=== PATIENT | female | born 1950 | race Caucasian/White ===

== ENCOUNTER 2021-02-28 12:51 | Emergency (ER) | payer MEDICARE, OTHER, SELFPAY ==
[2021-02-28 13:04] VITALS: BP 179/80; PULSE 81; RESP 14; TEMP 37.4; O2SAT 100; BMI 22.1
[2021-02-28 14:28] VITALS: BP 165/70; PULSE 91; TEMP 36.7; O2SAT 99
--- NOTE | 2021-02-28 14:34 | DI.US.S_ITS ---
PROCEDURE: US PERIPH VENOUS UP EXTREM RT INDICATIONS: post iv pain TECHNIQUE: Real-time imaging, as well as color and pulse Doppler interrogation, was performed of the right upper extremity deep veins from the inferior neck to the antecubital fossa. COMPARISON: None. FINDINGS: The internal jugular vein, visualized portions of the subclavian vein, axillary, and brachial veins are free of intraluminal thrombus. Where physically possible, the veins are normally compressible. Color and pulse Doppler demonstrate normal intraluminal flow, with expected phasicity and pulsatility. Additional scanning of the cephalic and basilic veins of the superficial system demonstrate normal compressibility, without thrombus. There is a masslike structure in the antecubital fossa, demonstrating no vascularity. IMPRESSION: 1. No evidence for DVT in the right upper extremity. 2. A masslike, nonvascular structure in the antecubital fossa. The patient reports infiltration at the injection site for an MRI study. Although this could be related residual of injected intravenous contrast material, if clinical symptoms persist, CT or MRI is recommended for follow-up evaluation. Dictated by: Nabil Griffiths M.D. on 02/28/2021 at 15:11 Approved by: Nabil Griffiths M.D. on 02/28/2021 at 15:18
[2021-02-28 16:06] VITALS: BP 165/70; PULSE 85; RESP 18; O2SAT 100
--- NOTE | 2021-02-28 16:28 | ED_ITS ---
HPI - Skin/Abscess/Foreign Bdy General Chief complaint: Skin/Abscess/Foreign Body Stated complaint: Right elbow IV infiltration injury x1 week Time Seen by Provider: 02/28/21 16:16 Source: patient Mode of arrival: Ambulatory Limitations: no limitations History of Present Illness HPI narrative: Patient is a 71-year-old female with no past medical history presenting with right antecubital fossa toe pain and swelling. She said 2 weeks ago on February 13 she had it IV contrasted MRI for breast cancer screening. She states that the IV infiltrated, tech flushed it she did not think that the contrast the gone through yet. She had a extensive bruising and swelling of her entire right arm. No numbness or tingling. She has been taking ibuprofen 400 mg she has been heating and elevating it but pain continues. No redness pus or swelling. No fevers. However it continues to hurt Related Data Allergies Allergy/AdvReac Type Severity Reaction Status Date / Time thimerosal Allergy Verified 02/28/21 13:04 Review of Systems Review of Systems Narrative: GENERAL: Denies chills, fatigue, malaise, fever, sweats, travel HEENT: Denies sinus pain, ear pain, sore throat, difficulty swallowing, neck pain RESPIRATORY: Denies dyspnea, cough, wheezing, hemoptysis, sputum. CARDIOVASCULAR: Denies chest pain, palpitations, orthopnea, edema GASTROINTESTINAL: Denies nausea, vomiting, abdominal pain, diarrhea, constipation, melena. : Denies dysuria, frequency, incontinence, hematuria, urinary retention, flank pain. MUSCULOSKELETAL: See HPI SKIN: No rash, no erythema, no pruritus NEUROLOGIC: Denies weakness, dizziness, headache, numbness, change in speech, confusion PSYCHIATRIC: No concerning psychosocial issues. 12 point review of systems is negative except for those stated above and HPI Patient History Social History Smoking Status: Unknown if ever smoked Smoking Status: Unknown if ever smoked alcohol intake frequency: a few times a week Substance Use Type: does not use Exam Initial Vital Signs Initial Vital Signs: Vital Signs Temperature 99.4 F 02/28/21 13:04 Pulse Rate 81 02/28/21 13:04 Respiratory Rate 14 02/28/21 13:04 Blood Pressure 179/80 H 02/28/21 13:04 Pulse Oximetry 100 02/28/21 13:04 GENERAL: Well-appearing, well-nourished and in no acute distress. CARDIOVASCULAR: peripheral pulses in tact, cap refill <2 sec RESPIRATORY: No respiratory distress, speaks in full sentences without difficulty EXTREMITIES: Normal range of motion, no clubbing or edema. Neurovascularly intact. Right upper extremity swelling over the medial epicondyle no erythema tender to touch no bruising distal radial pulse intact NEUROLOGICAL: Cranial nerves II through XII grossly intact. Normal gait and speech. SKIN: Warm, dry, no petechiae, no rashes or lesions. Course Orders Ordered: ED Orders 02/28/21 14:34 US periph venous up extrem rt Stat Vital Signs Vital signs: Vital Signs - 8 hr 02/28/21 13:04 02/28/21 14:28 02/28/21 16:06 Temperature 99.4 F 98.1 F Pulse Rate 81 91 H 85 Respiratory Rate 14 18 Blood Pressure 179/80 H 165/70 H 165/70 H Pulse Oximetry 100 99 100 MDM - Skin/Abscess/Foreign Bdy Imaging Data US - DVT: Radiologist's Impression: PROCEDURE:? US PERIPH VENOUS UP EXTREM RT ? INDICATIONS:? post iv pain ? TECHNIQUE:? Real-time imaging, as well as color and pulse Doppler interrogation, was performed of the right upper extremity deep veins from the inferior neck to the antecubital fossa.? ? COMPARISON:? None. ? FINDINGS:? The internal jugular vein, visualized portions of the subclavian vein, axillary, and brachial veins are free of intraluminal thrombus.? Where physically possible, the veins are normally compressible.? Color and pulse Doppler demonstrate normal intraluminal flow, with expected phasicity and pulsatility.? Additional scanning of the cephalic and basilic veins of the superficial system demonstrate normal compressibility, without thrombus.? ? There is a masslike structure in the antecubital fossa, demonstrating no vascularity. ? IMPRESSION:? ? 1. No evidence for DVT in the right upper extremity. ? 2. A masslike, nonvascular structure in the antecubital fossa.? The patient repo rts infiltration at the injection site for an MRI study.? Although this could be related residual of injected intravenous contrast material, if clinical symptoms persist, CT or MRI is recommended for follow-up evaluation.? ? ? Dictated by: Nabil Griffiths M.D. on 02/28/2021 at 15:11 ? ? Approved by: Nabil Griffiths M.D. on 02/28/2021 at 15:1 MDM Narrative Medical decision making narrative: At this time she actually does have some mild swelling over the medial epicondyle area may be early beginning of abscess no masses appreciated actually think this is more like soft tissue swelling. She would need MRI or CT to confirm this I did discuss this finding with her. Recommend ice Motrin. She has the follow-up appointment with her primary care provider next week. At this time no other treatments. Discharge Plan Departure Patient Disposition: Home Clinical Impression: Phlebitis Instructions: Phlebitis/DVT (Alternative Therapy) Activity Restrictions/Additional Instructions: *You have been diagnosed with phlebitis *What to do: At this time recommend elevating ice please follow-up with PCP as scheduled *Continue to take medications as directed Motrin 600 mg every 6 hours if needed [id number] pain *Follow up with your primary care provider in 2-3 days or call [phone] *Return to ER if you should have redness pain swelling numbness tingling or any new, worsening or concerning symptoms
== END 2021-02-28 16:39 | disposition home or self-care (01) ==
PROVIDERS: Emergency Provider Emergency Medicine
DX: I80.8 Phlebitis and thrombophlebitis of other sites (principal)
CPT/HCPCS: 93971; 99281; 99284

== ENCOUNTER 2024-10-02 08:29 | Emergency (ER) | payer MEDICARE, OTHER, SELFPAY ==
[2024-10-02 08:42] VITALS: BP 115/64; PULSE 95; RESP 16; TEMP 37; O2SAT 99; BMI 22.1
--- NOTE | 2024-10-02 09:57 | ED.BACK ---
HPI - Back Pain/Injury General Chief Complaint: Back Pain/Injury Stated Complaint: Lower back pain 2 days Time Seen by Provider: 10/02/24 09:57 History of Present Illness HPI Narrative: 74 years old female came today complaining of right hip pain, right buttock pain, right low back pain since Saturday after she finished rolling the air mattress without any injury, numbness weakness on her legs, bowel or bladder incontinence or retention, saddle analgesia, abdominal pain, nausea vomiting, fever, chills, chest pain, shortness of breath. She not immunosuppressed hose and deny history of osteoporosis, diabetes, times plan, IV drug use. Related Data Previous Rx's ?Medication ?Instructions ?Recorded tizanidine 4 mg capsule (Zanaflex) 4 mg PO Q8H PRN muscle spasticity 10/02/24 #20 caps Allergies Allergy/AdvReac Type Severity Reaction Status Date / Time thimerosal Allergy Verified 02/28/21 13:04 Review of Systems Review of Systems Narrative: Positive for right low back pain, right groin pain. Negative for injury, numbness weakness on her legs, bowel or bladder incontinence or retention, saddle analgesia, abdominal pain, nausea vomiting, fever, chills, chest pain, shortness of breath. Patient History alcohol intake frequency: a few times a week Exam Narrative Exam Narrative: GENERAL: Cooperative. No acute distress. HEAD: Atraumatic. Normocephalic. NECK: Trachea midline. Non tender CARDIOVASCULAR: Regular rate and rhythm without murmurs, gallops, or rubs. RESPIRATORY: Clear to auscultation. Breath sounds equal bilaterally. No wheezes, rales, or rhonchi. GASTROINTESTINAL: Abdomen soft, non-tender, nondistended. No lump or hernia the groin. Musculoskeletal/EXTREMITIES: No edema or joint tenderness. No midline tenderness on palpation on lumbar spine, lower thoracic spine. Mild tenderness on palpation paraspinal muscle right lumbar region, right buttock. Tenderness on palpation of the proximal thigh muscle without mass or hernia. BACK: Nontender without deformity or crepitance. No flank tenderness. NEURO: AOx3. Negative straight leg raising test on both legs. Normal sensation and strength in both legs. Normal strength for knee extension, ankle flexion and extension on both legs. SKIN: No rash or erythema of visible areas Initial Vital Signs Initial Vital Signs: Vital Signs Temperature 98.6 F 10/02/24 08:42 Pulse Rate 95 H 10/02/24 08:42 Respiratory Rate 16 10/02/24 08:42 Blood Pressure 115/64 10/02/24 08:42 Pulse Oximetry 99 10/02/24 08:42 Oxygen Delivery Method Room Air 10/02/24 08:42 Course Orders Ordered: ED Orders 10/02/24 10:08 XR hip w pel RT 2V Stat Discontinued Medications Ketorolac Tromethamine (Ketorolac 30 Mg/Ml Vial) 30 mg IM NOW ONE Stop: 10/02/24 10:09 Last Admin: 10/02/24 10:27 Dose: 30 mg Documented By: ALEX Vital Signs Vital signs: Vital Signs - 8 hr 10/02/24 11:21 Pulse Rate 77 Respiratory Rate 16 Blood Pressure 172/88 H Pulse Oximetry 100 Oxygen Delivery Method Room Air MDM - Back Pain/Injury ECG Data Interpretation: PROCEDURE: XR HIP W PEL IF DONE RT 2V INDICATIONS: Right hip pain TECHNIQUE: AP pelvis with lateral view(s) of the right hip(s). COMPARISON: None. FINDINGS: Bones: No fractures or dislocations. Bilateral hip joint osteoarthritic changes are seen. No evidence of avascular necrosis of femoral heads. Pelvic ring appears intact. No suspicious bony lesions. Soft tissues: The visualized bowel gas pattern is normal. No suspicious soft tissue calcifications. IMPRESSION: No acute pelvic or hip fracture. Bilateral hip joint osteoarthritis. No evidence of avascular necrosis. Dictated by: Rajiv Stahl M.D. on 10/02/2024 at 10:38 Approved by: Rajiv Stahl M.D. on 10/02/2024 at 10:39 [facility] Narrative Medical decision making narrative: 74 years old female came today complaining of right groin pain, right buttock pain, right lower abdominal pain since Saturday after she rolled air mattress without any other injury, numbness weakness on her leg, bowel or bladder incontinence or retention, fever, chills, abdominal pain, mass at the groin or hernia, diarrhea, constipation, urine problem. Her CV exam, lung exam were normal. Abdominal exam was benign. No midline thoracolumbar spine tenderness on palpation. Tenderness on palpation paraspinal muscle right lumbar region, right gluteal muscle and the right proximal thigh muscle without hernia or femoral hernia or lymphadenopathy of the right groin. She was given Toradol IM and was feeling better. She declined pain medication. She said she to Zanaflex at home and was feeling better. She was sent home with Zanaflex and due to continued Tylenol alternating ibuprofen as needed. I asked her set up primary care doctor for follow up. Return to the ED precaution was given. X-ray of the pelvis and the right hip showed no acute finding. Discharge Plan Departure Patient Disposition: Home Clinical Impression: Low back strain, Acute pain of right hip Instructions: DI for Back Strain or Sprain Activity Restrictions/Additional Instructions: Please come back to the emergency room if any worsening symptoms including but not limited to fever, abdominal pain, nausea vomiting, numbness weakness on your leg, bowel or bladder incontinence or retention. Prescriptions: New tizanidine [Zanaflex] 4 mg capsule 4 mg PO Q8H PRN (Reason: muscle spasticity) Qty: 20 0RF Stand Alone Forms: Patient Portal/API
--- NOTE | 2024-10-02 10:08 | DI.RAD.S_ITS ---
PROCEDURE: XR HIP W PEL IF DONE RT 2V INDICATIONS: Right hip pain TECHNIQUE: AP pelvis with lateral view(s) of the right hip(s). COMPARISON: None. FINDINGS: Bones: No fractures or dislocations. Bilateral hip joint osteoarthritic changes are seen. No evidence of avascular necrosis of femoral heads. Pelvic ring appears intact. No suspicious bony lesions. Soft tissues: The visualized bowel gas pattern is normal. No suspicious soft tissue calcifications. IMPRESSION: No acute pelvic or hip fracture. Bilateral hip joint osteoarthritis. No evidence of avascular necrosis. Dictated by: Rajiv Stahl M.D. on 10/02/2024 at 10:38 Approved by: Rajiv Stahl M.D. on 10/02/2024 at 10:39
[2024-10-02] MEDS: KETOROLAC 30 MG/ML VIAL IM (10:27)
[2024-10-02 10:38] VITALS: BP 178/80; PULSE 64; RESP 16; O2SAT 100
[2024-10-02 11:21] VITALS: BP 172/88; PULSE 77; RESP 16; O2SAT 100
== END 2024-10-02 11:22 | disposition home or self-care (01) ==
PROVIDERS: Emergency Provider Emergency Medicine
DX: S39.012A Strain of muscle, fascia and tendon of lower back, initial encounter (principal); M25.551 Pain in right hip; X58.XXXA Exposure to other specified factors, initial encounter
CPT/HCPCS: 73502; 96372; 99283; J1885